=== PATIENT | male | born 1995 | race Caucasian/White ===

== ENCOUNTER 2024-11-17 22:32 | Emergency (ER) | payer SELFPAY ==
[~2024-11-17] VITALS: Ht 172.7 cm; Wt 73.0 kg
[2024-11-17 22:38] VITALS: TEMP 36.9; O2SAT 97
[2024-11-18] MEDS: HYDROCODONE/ACETAMINOPHEN 10/325MG TABLET PO ONE (00:21)
[2024-11-18] MEDS ORDERED: IBUP-2030 MT (01:47)
[2024-11-18 02:12] VITALS: BP 123/56; PULSE 61; RESP 12; O2SAT 99
== END 2024-11-18 02:17 | disposition home or self-care (01) ==
LOC: ER 22:32
DX: S50.12XA Contusion of left forearm, initial encounter (principal); V89.2XXA Person injured in unspecified motor-vehicle accident, traffic, initial encounter; Y92.410 Unspecified street and highway as the place of occurrence of the external cause; Y93.89 Activity, other specified; Y99.8 Other external cause status
CPT/HCPCS: 73090; 99283